=== PATIENT | female | born 2005 | race Hispanic/Latino ===

== ENCOUNTER → 2025-03-25 | Outpatient (CLI) | payer MEDICAID ==
[2025-03-25 11:33] LABS: BASOPHILS # (AUTO) 0.03 K/uL (0.00-0.20); BASOPHILS % (AUTO) 0.4 % (0.0-5.0); EOSINOPHILS # (AUTO) 0.18 K/uL (0.00-0.70); EOSINOPHILS % (AUTO) 2.4 % (0.0-8.0); HEMATOCRIT 40.1 % (36-48); IMMATURE GRANULOCYTE ABSOLUTE 0.03 K/uL (0-1); LYMPHOCYTES # (AUTO) 2.5 K/uL (1.0-4.8); LYMPHOCYTES % (AUTO) 33.6 % (21.0-51.0); MEAN CORPUSCULAR HGB CONC 32.9 g/dL (32.0-36.0); MEAN CORPUSCULAR VOLUME 88.1 fL (80-100); MONOCYTES # (AUTO) 0.4 K/uL (0.1-1.0); MONOCYTES % (AUTO) 4.8 % (3.0-13.0); NEUTROPHILS # (AUTO) 4.4 K/uL (1.8-7.7); NEUTROPHILS % (AUTO) 58.4 % (40.0-77.0); PLATELET COUNT (AUTO) 315 K/uL (130-400); RED BLOOD CELL COUNT(AUTO) 4.55 MIL/uL (4.00-5.50); RED CELL DISTRIBUTION WIDTH 12.8 % (11.0-15.5); WHITE BLOOD COUNT (AUTO) 7.5 K/uL (4.8-10.8)
[2025-03-25 11:40] LABS: HEMOGLOBIN A1C 5.9 % (4.0-6.0)
[2025-03-25 11:50] LABS: % IRON SATURATION 24.6 % (22-44)
--- NOTE | 2025-03-25 11:52 | EKG ---
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
[2025-03-25 12:22] LABS: ALBUMIN 4.1 g/dL (3.5-5.0); BILIRUBIN,TOTAL 0.7 mg/dL (0.2-1.0); CREATININE 0.7 mg/dL (0.5-1.0); MAGNESIUM 2.1 mg/dL (1.80-2.40); POTASSIUM 3.9 mmol/L (3.5-5.1); T4 (THYROXINE) 8.4 ug/dL (4.7-13.3); THYROID STIMULATING HORMONE 1.56 uIU/mL (0.36-3.74); TOTAL PROTEIN, SERUM 7.7 g/dL (6.0-8.3)
--- NOTE | 2025-03-25 12:37 | HMCIMG ---
CHEST 1VW HISTORY: Preop COMPARISON: None FINDINGS: A frontal projection of the chest was obtained. No acute pulmonary infiltrates is seen. The heart is normal in size. No evidence of aortic calcification is seen. IMPRESSION: 1. No acute pulmonary infiltrate is seen.
[2025-03-26 08:13] LABS: INSULIN, RANDOM OR FASTING 31.4 uIU/mL (2.6-24.9)
== END | disposition home or self-care (01) ==
LOC: LAB 10:21
PROVIDERS: ATTEND Surgery
DX: E66.01 Morbid (severe) obesity due to excess calories (principal); Z68.42 Body mass index [BMI] 45.0-49.9, adult
CPT/HCPCS: 36415; 71045; 80053; 80061; 82306; 82607; 82728; 82746; 83036; 83525; 83540; 83550; 83735; 84207; 84425; 84436; 84443; 84446; 84481; 84590; 84630; 85025; 93005

== ENCOUNTER → 2025-04-22 | Outpatient (CLI) | payer OTHER ==
--- NOTE | 2025-04-22 12:46 | NUR ---
BARIATRIC FOLLOW UP NOTE VISIT 2 OF 6 Wt: 265 LBS DOS: 04/22/25 Upon follow up visit, pt presents with a 2 lb wt gain. Pt reported no MVI, been eating out more, still with carbonation, walking for 30 min 4x per week. RD conducted 24 hr food recall. Breakfast: N/A Lunch: chick vicenta a grilled chicken sandwich + merrill + fries + diet soda Dinner: [employer]: orange chicken + noodle + beef + water RD reviewed simple CHO and complex CHO intake, reviewed high fiber items to reduce LDL lab, reviewed labs, encouraged Pt to visit PCP due to A1C and vit. D results, encouraged pt to decrease soft drink (even sugar free) consumption secondary to carbonation and caffeine, pt verbalized understanding. RD and pt established goals for next month: -walking 45 min 4x per week -MVI QD -discuss labs with PCP Thank you for this visit Addendum: 04/22/25 at [address] Amended: Links added.
== END | disposition home or self-care (01) ==
LOC: LAB 12:05
PROVIDERS: ATTEND Surgery
DX: K21.9 Gastro-esophageal reflux disease without esophagitis (principal); G47.33 Obstructive sleep apnea (adult) (pediatric); E66.01 Morbid (severe) obesity due to excess calories; Z68.32 Body mass index [BMI] 32.0-32.9, adult
CPT/HCPCS: 97803

== ENCOUNTER → 2025-06-25 | Outpatient (CLI) | payer MEDICAID ==
[2025-06-25 21:19] VITALS: PULSE 90; RESP 12
[2025-06-25 22:00] VITALS: PULSE 75; RESP 20
[2025-06-25 22:30] VITALS: PULSE 73; RESP 24
[2025-06-25 22:57] VITALS: PULSE 77; RESP 22
[2025-06-25 23:33] VITALS: PULSE 85; RESP 24
[2025-06-26] VITALS (11 sets, daily range): PULSE 67–88; RESP 14–24
== END | disposition home or self-care (01) ==
LOC: SLP 20:01
PROVIDERS: ATTEND Internal Medicine Pulmonary Disease
DX: G47.10 Hypersomnia, unspecified (principal)
CPT/HCPCS: 95810

== ENCOUNTER 2025-07-08 06:51 | Day surgery (SDC) | payer MEDICAID ==
[2025-07-08] VITALS (10 sets, daily range): BP systolic 108–121; BP diastolic 58–70; PULSE 73–90; RESP 14–20; TEMP 97.6–98.1
[~2025-07-08] VITALS: Ht 154.9 cm; Wt 124.7 kg
[2025-07-08] MEDS ORDERED: ERGO500093 PO (07:05)
[2025-07-08] MEDS: 0.9%NACL 1000ML 1,000 ML IV ONE (07:19)
[2025-07-08] MEDS ORDERED: GLYCOPYRROLATE 0.2 MG/ML 5 ML VIAL ONE (07:26)
[2025-07-08] MEDS ORDERED: LIDOCAINE PF 100MG/5ML (2%) SYRINGE 5ML ONE (07:26)
== END 2025-07-08 09:15 | disposition home or self-care (01) ==
LOC: DAH 06:51
PROVIDERS: ATTEND Surgery
DX: R12 Heartburn (principal); K29.50 Unspecified chronic gastritis without bleeding; K22.89 Other specified disease of esophagus; E66.01 Morbid (severe) obesity due to excess calories; R73.03 Prediabetes; K31.89 Other diseases of stomach and duodenum; Z79.899 Other long term (current) drug therapy; Z68.42 Body mass index [BMI] 45.0-49.9, adult
CPT/HCPCS: 43239; 82948 ×2; 81025; J7030; J2003; J2704; J3490; A4620; A4215

== ENCOUNTER → 2025-08-06 | Outpatient (CLI) | payer OTHER ==
[~2025-08-06] MED LIST: ERGO500093 PO
--- NOTE | 2025-08-06 10:05 | NUR ---
FOLLOW PRE-OP/POST-OP DIETARY RECOMMENDATIONS BARIATRIC PRE-OP VISIT VISIT 6 OF 6 Wt: 266 lbs DOS: 08/06/25 Upon follow up visit, pt presented with a 6 lb wt loss. Pt reported she is still taking vit. D prescription, walking 1 hr QD, no LA QD, procedure to be next Sunday, on a full liquid diet. RD reviewed educational material for pre-op and post-op diet recommendations with detailed phases of diet post-op. Pt was informed of importance of lifelong vitamin/mineral supplementation, choosing protein first during meals (pt was educated on higher protein requirements), choosing low calorie, sugar free, carbonated free and caffeine beverages. RD also informed pt on lifelong commitment to exercise and dietary recommendations for optimal success post surgery. RD encouraged getting blood work every 3 to 6 months, including B-vitamins, Pt verbalized understanding. RD informed Pt on moving around after procedure to prevent DVT, Pt verbalized understanding. Pt was encouraged to contact RD as questions arise and to attend support groups. RD provided protein supplement recommendations along with Bariatric Vitamin recommendations via graphics to patient. Pt with several questions, all of which were answered. Fair to poor compliance suspected. Pt will benefit from outpatient bariatric dietitian follow up post procedure. Pt to follow up with PCP for labs. Thank you for this visit. Addendum: 08/06/25 at [address] Amended: Links added.
== END | disposition home or self-care (01) ==
LOC: DTH 09:38
PROVIDERS: ATTEND Surgery
DX: E66.01 Morbid (severe) obesity due to excess calories (principal); E66.3 Overweight; G47.33 Obstructive sleep apnea (adult) (pediatric); M19.91 Primary osteoarthritis, unspecified site; Z71.3 Dietary counseling and surveillance; K21.9 Gastro-esophageal reflux disease without esophagitis
CPT/HCPCS: 97803